=== PATIENT | male | born 1995 | race Caucasian/White ===

== ENCOUNTER 2024-02-16 00:16 | Emergency (ER) | payer BC ==
[~2024-02-16] VITALS: Ht 180.3 cm; Wt 97.5 kg
[2024-02-16 00:30] VITALS: BP_SYST 173; PULSE 89; RESP 18; TEMP 98; O2SAT 97
[2024-02-16 01:40] VITALS: BP_SYST 153; PULSE 92; RESP 25; TEMP 98.5; O2SAT 100
== END 2024-02-16 01:40 | disposition home or self-care (01) ==
LOC: SED 00:16
DX: D17.1 Benign lipomatous neoplasm of skin and subcutaneous tissue of trunk (principal); I10 Essential (primary) hypertension
CPT/HCPCS: 99281